=== PATIENT | female | born 1960 | race Caucasian/White ===

== ENCOUNTER → 2017-10-28 | Outpatient (CLI) | payer OTHER ==
[~2017-10-28] MED LIST: LEVOTHYROXINE0.05 MG; TRAMADOL 50 MG50 MG PO
== END ==
LOC: M.RAD 07:00
DX: Z12.31 Encounter for screening mammogram for malignant neoplasm of breast (principal)

== ENCOUNTER → 2019-02-12 | Outpatient (CLI) | payer OTHER | LOC: M.RAD 13:00 | DX: N63.10 Unspecified lump in the right breast, unspecified quadrant (principal) ==

== ENCOUNTER → 2020-02-16 | Outpatient (CLI) | payer OTHER | LOC: M.RAD 09:58 | PROVIDERS: ATTEND Nurse Practitioner Family | DX: Z12.31 Encounter for screening mammogram for malignant neoplasm of breast (principal) ==

== ENCOUNTER 2020-07-25 16:21 | Observation (INO) | payer OTHER ==
[~2020-07-25] VITALS: Ht 170.2 cm; Wt 83.9 kg
[2020-07-25 16:41] VITALS: BP 144/93
[2020-07-25] MEDS ORDERED: LISINOPRIL10 MG PO (16:44)
[2020-07-25] MEDS ORDERED: PROAIR HFA8.5 GM INH (16:46)
[2020-07-25] MEDS ORDERED: DULERA 100 MCG/13 GM INH (16:46)
[2020-07-25 17:06] LABS: URINE BILIRUBIN NEGATIVE (Negative); URINE BLOOD NEGATIVE (Negative); URINE CLARITY CLEAR; URINE COLOR YELLOW; URINE GLUCOSE-RANDOM NEGATIVE (Negative); URINE KETONES NEGATIVE (Negative); URINE LEUKOCYTES-REFLEX TRACE (Negative); URINE NITRITE-REFLEX NEGATIVE (Negative); URINE PROTEIN NEGATIVE (Negative)
[2020-07-25 17:15] LABS: HYALINE CASTS 0-3 Few /LPF (None Seen); SQUAMOUS >10 Many /LPF (0-3)
[2020-07-25 17:17] LABS: BACTERIA-REFLEX 1-9 Few /HPF (None Seen); CRYSTALS None Seen /LPF (None Seen); MUCUS 0-3 Light strn/LPF (None Seen); URINE RBC None Seen /HPF (0-2); URINE WBC-REFLEX 0-5 Rare /HPF (0-5)
[2020-07-25 18:33] LABS: HEMATOCRIT 38.7 % (37.0-47.0); HEMOGLOBIN 12.9 gm/dL (12.0-15.0); MCH 28.2 pg (26.0-34.0); MCHC 33.4 g/dL (28.0-37.0); MCV 84.5 fL (80.0-100.0); MPV 6.2 fl. (7.2-11.1); NUCLEATED RBCS 0 /100WBC; PLATELET COUNT* 199 thou/uL (150-400); RBC 4.58 mil/uL (4.20-5.00); RDW-CV 12.7 % (10.5-14.5); WBC 7.8 thou/uL (4.0-11.0)
[2020-07-25 18:44] LABS: CALCIUM 8.8 mg/dL (8.5-10.1); CREATININE 0.9 mg/dL (0.6-1.3); POTASSIUM 3.7 mmol/L (3.5-5.1)
[2020-07-25 18:48] LABS: ALBUMIN 3.7 g/dL (3.4-5.0); TOTAL BILIRUBIN 0.8 mg/dL (<0.1-1.0)
[2020-07-25 19:03] LABS: ABSOLUTE EOSINOPHILS 0.1 thou/uL (0.0-0.7); ABSOLUTE LYMPHOCYTES 4.8 thou/uL (0.8-5.3); ABSOLUTE MONOCYTES 0.6 thou/uL (0.0-1.2); ABSOLUTE NEUTROPHILS 2.3 thou/uL (1.6-8.1); PLATELET ESTIMATE ADEQUATE
[2020-07-25 20:00] VITALS: BP 170/68
[2020-07-25 21:40] VITALS: BP 122/79
[2020-07-25 21:55] VITALS: BP 126/79
[2020-07-26] VITALS: BP 127/75
[2020-07-26 04:10] VITALS: BP 127/80
[2020-07-26 07:50] VITALS: BP 122/73
[2020-07-26 11:45] VITALS: BP 122/73
--- NOTE | 2020-07-26 14:16 | EKG ---
[place] [address] ELECTROCARDIOGRAM REPORT Name: BETTY IGNACIO Room: [address]#: [id number] Admission: 07/25/20 Attend Phys: Liliya Green, Discharge: Date of : 60 Date of Service: 07/25/201824 Report #: [id number] THIS REPORT FOR: //name// [facility] ED Test Date: 2020-07-25 Test Time: 18:25:20 Pat Name: BETTY IGNACIO Department: Room: [facility] Gender: F Avionics System Engineer: : [id number] Requested By: Ricky Moore Order Number: [id number] MD: Sotero Campos Measurements Intervals [place] Rate: 85 P: 30 [place]: 169 QRS: 61 QRSD: 87 T: 5 QT: 349 QTc: 415 Interpretive Statements Sinus rhythm No previous ECG available for comparison Electronically Signed On 07-26-2020 14:16:04 CDT by Sotero Campos [email or web address] <ELECTRONICALLY SIGNED> By: Sotero Campos MD, [facility] 07/26/20 1416 1825 182 Sotero Campos MD, [facility] /EPI
--- NOTE | 2020-07-26 15:21 | 2DMMODE ---
[place] [address] 2 D/M-MODE ECHOCARDIOGRAM Name: BETTY IGNACIO Room: [address] Salma Crowe#: [id number] Admission: 07/25/20 Attend Phys: Liliya Green, Discharge: Date of : 60 Date of Service: 07/26/20 1520 Report #: [id number] THIS REPORT FOR: cc: Karly Flores Stefany RNP [place], Michael J. MD [facility] ~ APPROVED REPORT Study performed: 07/26/2020 10:47:06 EXAM: Comprehensive 2D, Doppler, and color-flow Echocardiogram Patient Location: In-Patient Room #: [facility] Status: routine BSA: 1.96 HR: 83 bpm BP: 127/80 mmHg Rhythm: NSR Other Information Study Quality: Good Indications rule out thrombus source 2D Dimensions IVSd: 8.90 (7-11mm) LVOT Diam: 18.40 (18-24mm) LVDd: 43.54 mm PWd: 9.65 (7-11mm) Ascending Ao: 26.23 (22-36mm) LVDs: 18.94 (25-40mm) Aortic Root: 26.64 mm Volumes Left Atrial Volume (Systole) LA ESV Index: 19.70 mL/m2 Aortic Valve AoV Peak Rudy.: 1.84 m/s AO Peak Gr.: 13.59 mmHg LVOT Max P.90 mmHg AO Mean Gr.: 7.08 mmHg LVOT Mean P.60 mmHg LVOT Max V: 1.80 m/s AO V2 VTI: 30.42 cm LVOT Mean V: 1.07 m/s GERARD (VTI): 2.63 cm2 LVOT V1 VTI: 30.03 cm AI [place]: 3.27 m/s2 [place] [address] 2 D/M-MODE ECHOCARDIOGRAM Name: BETTY IGNACIO Room: [address] Salma Crowe#: [id number] Admission: 07/25/20 Attend Phys: Liliya Green, Discharge: Date of : 60 Date of Service: 07/26/20 1520 Report #: [id number] PHT: 336.12 ms Mitral Valve E/A Ratio: 0.83 MV Decel. Time: 188.55 ms MV E Max Rudy.: 0.69 m/s MV PHT: 54.68 ms MVA (PHT): 4.02 cm2 TDI E/Lateral E': 8.63 E/Medial E': 8.63 Medial E' Rudy.: 0.08 m/s Lateral E' Rudy.: 0.08 m/s Pulmonary Valve PV Peak Rudy.: 1.27 m/s PV Peak Gr.: 6.43 mmHg Tricuspid Valve RAP Estimate: 5.00 mmHg TR Peak Gr.: 22.95 mmHg RVSP: 28.00 mmHg PA Pressure: 28.00 mmHg Left Ventricle The left ventricle is normal size. There is normal LV segmental wall motion. There is normal left ventricular wall thickness. Left ventricular systolic function is normal. LVEF is 60-65%. Grade I - abnormal relaxation pattern. Right Ventricle The right ventricle is normal size. The right ventricular systolic function is normal. Atria The left atrium size is normal. The right atrium size is normal. Aortic Valve The aortic valve is normal in structure. Mild aortic regurgitation. There is no aortic valvular stenosis. Mitral Valve The mitral valve is normal in structure. Trace mitral regurgitation. No evidence of mitral valve stenosis. Tricuspid Valve The tricuspid valve is normal in structure[place] [address] 2 D/M-MODE ECHOCARDIOGRAM Name: BETTY IGNACIO Room: [address]#: [id number] Admission: 07/25/20 Attend Phys: Liliya Green, Discharge: Date of : 60 Date of Service: 07/26/20 1520 Report #: [id number] regurgitation. Pulmonic Valve The pulmonary valve is normal in structure. There is no pulmonic valvular regurgitation. Great Vessels The aortic root is normal in size. IVC is normal in size and collapses >50% with inspiration. Pericardium There is no pericardial effusion. <Conclusion> The left ventricle is normal size. There is normal left ventricular wall thickness. Left ventricular systolic function is normal. LVEF is 60-65%. Grade I - abnormal relaxation pattern. Mild aortic regurgitation. Trace mitral regurgitation. Trace tricuspid regurgitation. IVC is normal in size and collapses >50% with inspiration. <ELECTRONICALLY SIGNED> By: Sotero Campos MD, FACC 07/26/20 1520 1520 1520 Sotero Campos MD, FACC /INF
[2020-07-26 20:30] VITALS: BP 139/74
[2020-07-26 23:12] LABS: AMP/METHAMP Negative (Negative); BARBITURATES Negative (Negative); BENZODIAZEPINES Negative (Negative); COCAINE Negative (Negative); METHADONE Negative (Negative); OPIATES Negative (Negative); PCP Negative (Negative); THC Negative (Negative)
[2020-07-27 00:11] VITALS: BP 123/76
[2020-07-27 02:06] LABS: HEPATITIS B SURFACE AG Negative (Negative)
[2020-07-27 07:30] VITALS: BP 137/83
[2020-07-27] MEDS ORDERED: CEFUROXIME250 MG PO (09:54)
[2020-07-27] MEDS ORDERED: PHENERGAN 25 MG25 M1 PO (09:54)
[2020-07-27] MEDS ORDERED: OMEPRAZOLE40 MG PO (09:54)
[2020-07-27 11:13] VITALS: BP 137/83
== END 2020-07-27 11:47 | disposition home or self-care (01) ==
LOC: M.ERS 16:21 → M.2W 19:52 → M.TBA-ER 19:52 → M.2W 21:51
PROVIDERS: Emergency Medicine Emergency Medical Services; Internal Medicine; Nurse Practitioner Family; ADMIT Internal Medicine; ATTEND Internal Medicine
DX: R50.9 Fever, unspecified (principal); Z20.822 Contact with and (suspected) exposure to COVID-19; K75.81 Nonalcoholic steatohepatitis (NASH); R05 Cough; I88.0 Nonspecific mesenteric lymphadenitis; R10.9 Unspecified abdominal pain; R79.82 Elevated C-reactive protein (CRP); Z85.118 Personal history of other malignant neoplasm of bronchus and lung; Z79.899 Other long term (current) drug therapy; Z90.2 Acquired absence of lung [part of]